=== PATIENT | male | born 1930 | race Caucasian/White ===

== ENCOUNTER 2016-05-13 20:53 | Emergency (ER) | payer MEDICARE ==
[~2016-05-13] VITALS: Ht 167.6 cm; Wt 91.0 kg
[~2016-05-13 20:53] MED LIST: ACET325T51 PO; ALFU10TA11 PO; ALLO300T2 PO; ATOR80TA77 PO; BISA10SU61 RC; CLOP75TA28 PO; FURO-129 PO; LISI2.5T PO; LIT150 PO; NITR0.4T6 SL; ONDA8TAB10 PO; POLY1GRA PO; POTA20TA7 PO; QUET100T69 PO; TAMS0.4C98 PO; TRAM50TA2 PO
[2016-05-13 21:00] VITALS: BP 123/70; PULSE 75; RESP 20; O2SAT 97
--- NOTE | 2016-05-13 23:18 | ED.REPORT ---
HPI-Extremity Problem Lower Date of Service May 13, 2016 ED Provider: Franko Zuniga MD An 85 year old male with a history of VA x5, multiple open heart surgeries with five stents, pacemaker, hypertension, chronic knee pain, and left knee surgery x7 presents to the ED complaining of left knee pain. The knee his also been intermittently cold, numb, and swollen. The pain has been worsening recently, especially since he fell two months ago. The pt lives at [facility] in [place], and reports that the staff there will not give him pain medications. The pain has reached the point that he has been unable to sleep for two days. In the ED, the pt is requesting pain medications to help him sleep. Nursing Notes Stated Complaint: LEFT SIDE FROM KNEE DOWN IS NUMB Chief Complaint: Extremity Trauma Nursing Notes Reviewed: Yes Allergies: Coded Allergies: codeine (Unverified Allergy, Unknown, 08/07/15) Scheduled Alfuzosin ER (Alfuzosin ER) 10 Mg Tab.er.24h 10 MG PO DAILY Allopurinol (Allopurinol) 300 Mg Tablet 300 MG PO QAM Atorvastatin Calcium (Atorvastatin Calcium) 80 Mg Tablet 80 MG PO HS Clopidogrel (Clopidogrel) 75 Mg Tablet 75 MG PO DAILY Furosemide (Lasix) 20 Mg Tablet 20 MG PO DAILY Lisinopril (Lisinopril) 2.5 Mg Tablet 2.5 MG PO DAILY [place] Carbonate ([place] Carbonate) 150 Mg Capsule 150 MG PO MORNING For bipolar disorder Potassium Chloride ER (Klor-Con M20) 20 Meq Tablet 20 MEQ PO QAM Quetiapine Fumarate (Quetiapine Fumarate) 100 Mg Tablet 100 MG PO HS Scheduled PRN Acetaminophen (Acetaminophen) 325 Mg Tablet 650 MG PO q6hrs PRN PRN For Pain Bisacodyl (Dulcolax Rectal) 10 Mg Supp.rect 10 MG RC DAILY PRN PRN For Constipation Ibuprofen (Ibuprofen) 600 Mg Tablet 600 MG PO TID PRN PRN For Pain Nitroglycerin SL (Nitroglycerin SL) 0.4 Mg Tab.subl 0.4 MG SL Q5MIN PRN PRN For Chest Pain Ondansetron ODT (Ondansetron ODT) 8 Mg Tab.rapdis 8 MG PO QID PRN PRN For Nausea Polyethylene Glycol 3350 (Polyethylene Glycol 3350) 1 Gm Granules 17 GM PO DAILY PRN PRN For Constipation Tamsulosin (Flomax) 0.4 Mg Capsule 0.4 MG PO DAILY PRN PRN . Tramadol (Tramadol) 50 Mg Tablet 50 MG PO TID PRN PRN For Pain General Time Seen by MD: 23:17 Chief Complaint Other (Left knee pain ) Hx Obtained From: Patient Arrived By: Walk-in Onset Occurred: More than a week ago... Symptom Duration: Since onset Recent Healthcare: No recent hospitalization, Recent doctor visit Similar Sx Previous: Yes Past Medical History Past Medical History Ischemic cardiomyopathy. Coronary artery disease with history of CABG and drug-eluting stents Chronic diastolic heart failure Hypertension Depression Bipolar disorder (h/o lithium use) Gout Cholelithiasis Dysphagia Gastric ulcer Chronic knee pain Past Surgical History History of quadruple coronary artery bypass grafting, 1972 Cardiac catheterization with drug eluding stents, 2008 Left total knee replacement Appendectomy Status post EGD 02/27/2015, normal Reports: CABG Reports: Pacemaker insertion Smoking History Unknown if Ever Smoker Social History recently relocated to [facility]. lives at the [facility] assisted [facility]. uses wheelchair to get around DNR/DNI, see palliative care consultation during hospitalization 03/11/1950 Alcohol Use: Denies alcohol use Drug Use: Denies drug use Other Social History: Good social support, Lives in [facility] Ambulatory Status Wheelchair Review of Systems Review of Systems Note: left knee feels cold Constitutional: Denies: Fever Musculoskeletal: Reports: Extremity pain, Joint pain, Joint swelling, Denies: Neck pain Skin: Denies Rash Neurologic: Reports: Numbness Complete sys rev & neg: except as marked. Physical Exam Initial Vital Signs Vital Signs (First) Date Time Temp Pulse Resp B/P Pulse Ox O2 Delivery O2 Flow Rate FiO2 05/13/16 21:00 36.3 75 20 123/70 97 Room Air Initial VS: Reviewed Lower Extremity / Pelvis / MS: Full range of motion, Non-tender, No erythema, Neurologic intact no warmth Ankle / Foot: Atraumatic, Full range of motion General/Constitutional: Awake, Alert Respiratory / Chest: Atraumatic, Breath sounds NL, Breath sounds = bilat, No respiratory distress Cardiovascular: Heart rate NL, Heart sounds NL Skin: Atraumatic, Color NL, No rash, Warm, Dry Neurologic: Oriented X3, Speech NL, No motor deficits, No sensory deficits Head / Eyes: Atraumatic, Normocephalic, PERRL, EOMI ENT: Atraumatic, Airway patent, Mucous membranes moist Neck: Atraumatic, Supple, Full range of motion Abdomen: Atraumatic, Soft, Non-tender Back: Atraumatic, Full range of motion Upper Extremity / MS: Atraumatic, Full range of motion Psychiatric: Affect NL, Mood NL Interpretation & Diagnostics X-Ray Interpretation Xray Interpretation: hardware present no acute changes X-Ray Ordered: Knee left Interpretation / Wet Read by: Wet read ED physician Procedures Procedure Notes: Left Knee Injection/arthrocentesis: 00:48 ED physician Informed consent provided by pt, time-out performed, hand hygiene observed, stand sterile technique Skin preparation agent: chlorhexidine 25 gauge needle 40 mg Kenalog, 4 mg lidocaine Re-Eval/Medical Decision Med Decision/Clinical Course 85-year-old male with numerous surgeries left knee complaining of chronic left knee pain. No sign symptoms infection. No fevers, nausea vomiting, redness, swelling. He reports this is his typical chronic pain. He is requesting a steroid injection. I gave him a steroid injection with Kenalog 40 mg and lidocaine 4 mg. As prescribed ibuprofen to use as needed for pain for the next couple days. Afterwards he is to use Tylenol. Return precautions given. Advised to follow up with primary doctor. Source of Hx: Old records Re-Evaluation/Progress : Time of Eval: 00:48 Patient Status: Condition improved Re-Evaluation/Progress Note: Pt rechecked, and left knee injection procedure is performed. Pt tolerated the procedure well and there were no complications. The plan for discharge is discussed. The pt understands and agrees with the plan. All questions are addressed at this time. Counseled Regarding: Diagnosis, Lab results, Need for follow-up, When/why to return to ED Discharge & Departure Impression: Primary Impression: Arthritis of left knee Disposition: Home Discharge Condition All VS Reviewed: Yes Condition: Stable Patient Instructions: Osteoarthritis (ED) Additional Instructions: Thank you for entrusting us with your care today. Take ibuprofen as directed for pain. Follow up with your primary care physician for further evaluation. Return to the emergency department if you develop any new or worsening symptoms. Referrals: [facility] Scribe Attestation Portions of this note were transcribed by Cristobal Valle. I, Dr. Zuniga personally performed the history, physical exam and medical decision-making; I reviewed and confirmed the accuracy of the information in the transcribed note. Signed by: Ekaterina Cowart, 05/14/2016 and 02:01. copies to: [facility] Franko Zuniga MD May 13, 2016 23:18 CRISTOBAL VALLE May 14, 2016 00:26
[2016-05-14] MEDS ORDERED: Lidocaine 1% 50 mL Inj NERVEBLOCK ONE (00:25)
[2016-05-14] MEDS ORDERED: Triamcinolone Acet 40 mg/mL 5 mL Inj INTRARTICU ONE (00:25)
[2016-05-14] MEDS ORDERED: diphenhydrAMINE 25 mg Capsule PO ONE (00:45)
[2016-05-14] MEDS ORDERED: IBUP-1827 PO (01:01)
[2016-05-14 01:30] VITALS: BP 124/72; PULSE 68; RESP 24; O2SAT 96
--- NOTE | 2016-05-14 08:59 | DRSVH ---
PROCEDURE: X-RAY LEFT KNEE, ONE OR TWO VIEWS ([id number]) INDICATIONS: pain TECHNIQUE: 3 views of the knee were acquired. COMPARISON: None. FINDINGS: Bones: Left knee arthroplasty is present and there is periprosthetic lucency seen involving the tibia l component along the lateral and posterior aspect of the prosthesis. Hardware otherwise is intact. No periprosthetic fracture seen. Heterotopic ossification is present. Soft tissues: Small joint effusion. No suspicious soft tissue calcifications. IMPRESSION: 1. Left knee arthroplasty with periprosthetic lucency involving the tibial component which may be rel ated to loosening or infection. Recommend clinical correlation and comparison with old radiographs i f available would be helpful. Dictated by: John Charles [facility] Interpreted: Dino Vences MD on 05/14/2016 at 8:57 Transcribed by: REMINGTON on 05/14/2016 at 8:58 Approved by: Dino Vences M.D. on 05/14/2016 at 17:45
== END 2016-05-14 01:20 | disposition home or self-care (01) ==
LOC: SED 20:53
DX: M17.12 Unilateral primary osteoarthritis, left knee (principal); W19.XXXA Unspecified fall, initial encounter; Y93.01 Activity, walking, marching and hiking; Y99.8 Other external cause status; Y92.129 Unspecified place in nursing home as the place of occurrence of the external cause; I10 Essential (primary) hypertension; I50.9 Heart failure, unspecified; I25.10 Atherosclerotic heart disease of native coronary artery without angina pectoris; I25.2 Old myocardial infarction; Z96.652 Presence of left artificial knee joint; Z95.0 Presence of cardiac pacemaker; Z95.1 Presence of aortocoronary bypass graft; Z88.5 Allergy status to narcotic agent
CPT/HCPCS: 20610; 73560; 99284; J3301

== ENCOUNTER 2016-05-21 10:07 | Emergency (ER) | payer MEDICARE ==
[~2016-05-21] VITALS: Ht 167.6 cm; Wt 95.4 kg
[~2016-05-21 10:07] MED LIST changes: +IBUP-1827 PO
[2016-05-21 10:30] VITALS: BP 126/77; PULSE 94; RESP 30; O2SAT 96
--- NOTE | 2016-05-21 10:33 | ED.REPORT ---
HPI-Chest Pain 40 and Over Date of Service May 21, 2016 ED Provider: Leroy Rick DO Pt is an 85 y/o male w/ a hx of ischemic cardiomyopathy, CAD s/p CABG and stents , CHF, HTN, gastric ulcer disease, presenting to the ED with family c/o lower sternal CP onset last night. He c/o associated nausea, vomiting, increased flatus. He states that his pain feels similar to indigestion but also similar to his previous MIs. Pt denies cough, SOB, fever, chills, abdominal pain, diarrhea. Nursing Notes Stated Complaint: CHEST PAIN/SENT FROM Chief Complaint: Chest Pain Nursing Notes Reviewed: Yes Allergies: Coded Allergies: codeine (Unverified Allergy, Unknown, 08/07/15) Scheduled Alfuzosin ER (Alfuzosin ER) 10 Mg Tab.er.24h 10 MG PO DAILY Allopurinol (Allopurinol) 300 Mg Tablet 300 MG PO QAM Atorvastatin Calcium (Atorvastatin Calcium) 80 Mg Tablet 80 MG PO HS Clopidogrel (Clopidogrel) 75 Mg Tablet 75 MG PO DAILY Furosemide (Lasix) 20 Mg Tablet 20 MG PO DAILY Lisinopril (Lisinopril) 2.5 Mg Tablet 2.5 MG PO DAILY [place] Carbonate ([place] Carbonate) 150 Mg Capsule 150 MG PO MORNING For bipolar disorder Potassium Chloride ER (Klor-Con M20) 20 Meq Tablet 20 MEQ PO QAM Quetiapine Fumarate (Quetiapine Fumarate) 100 Mg Tablet 100 MG PO HS Scheduled PRN Acetaminophen (Acetaminophen) 325 Mg Tablet 650 MG PO q6hrs PRN PRN For Pain Bisacodyl (Dulcolax Rectal) 10 Mg Supp.rect 10 MG RC DAILY PRN PRN For Constipation Ibuprofen (Ibuprofen) 600 Mg Tablet 600 MG PO TID PRN PRN For Pain Nitroglycerin SL (Nitroglycerin SL) 0.4 Mg Tab.subl 0.4 MG SL Q5MIN PRN PRN For Chest Pain Ondansetron ODT (Ondansetron ODT) 8 Mg Tab.rapdis 8 MG PO QID PRN PRN For Nausea Polyethylene Glycol 3350 (Polyethylene Glycol 3350) 1 Gm Granules 17 GM PO DAILY PRN PRN For Constipation Tamsulosin (Flomax) 0.4 Mg Capsule 0.4 MG PO DAILY PRN PRN . Tramadol (Tramadol) 50 Mg Tablet 50 MG PO TID PRN PRN For Pain General Time Seen by MD: 10:32 Chief Complaint Chest pain Hx Obtained From: Patient Arrived By: Walk-in Sudden in Onset?: No Onset Occurred: 13 - 16 hours ago Symptom Duration: Since onset Location: : Substernal Quality: Painful Radiation: : Does not radiate Migration/Movement: Reports: None Severity: Current: Moderate Severity: Maximum: Moderate Recent Healthcare: Previous diagnosis Similar Sx Previous: Yes Past Medical History Past Medical History Ischemic cardiomyopathy. Coronary artery disease with history of CABG and drug-eluting stents Chronic diastolic heart failure Hypertension Depression Bipolar disorder (h/o lithium use) Gout Cholelithiasis Dysphagia Gastric ulcer Chronic knee pain Past Surgical History History of quadruple coronary artery bypass grafting, 1972 Cardiac catheterization with drug eluding stents, 2008 Left total knee replacement Appendectomy Status post EGD 02/27/2015, normal Reports: CABG Reports: Pacemaker insertion Smoking History Unknown if Ever Smoker Social History recently relocated to [facility]. lives at the [facility]. uses wheelchair to get around DNR/DNI, see palliative care consultation during hospitalization 03/11/1950 Alcohol Use: Denies alcohol use Drug Use: Denies drug use Other Social History: Good social support, Lives in [facility] Ambulatory Status Wheelchair Review of Systems Constitutional: Denies: Chills, Fever Respiratory: Denies: Non-productive cough, Shortness of breath Cardiovascular: Reports: Chest pain GI: Reports: Belching, Nausea, Vomiting, Denies: Abdominal pain, Diarrhea Complete sys rev & neg: except as marked. Physical Exam Initial Vital Signs Vital Signs (First) Date Time Temp Pulse Resp B/P Pulse Ox O2 Delivery O2 Flow Rate FiO2 05/21/16 10:30 36. 94 30 126/77 96 Room Air 05/21/16 12:23 2 Initial VS: Reviewed, Vital signs normal Head / Eyes: Atraumatic, Normocephalic, PERRL Neck: Supple, Full range of motion Extremities: Vascular intact, Neuro intact, No swelling, No tenderness Skin: Warm, Dry, No cyanosis Neurologic: Alert, Oriented, Nonfocal Psychiatric: Mood/affect normal, Behavior normal, Normal thought content General/Constitutional: Awake, Alert, No acute distress, Cooperative, Not toxic appearing Respiratory / Chest: Atraumatic, Breath sounds NL, Breath sounds = bilat, No respiratory distress, No rales, No rhonchi, No wheezing, No retractions, No stridor, No chest wall deformity, No crepitus Lower sternal chest wall tenderness Cardiovascular: Heart rate NL, Regular rhythm, Heart sounds NL, No gallop, No murmurs, No rubs, Cap refill not delayed, Peripheral circulation NL Abdomen: Atraumatic, Soft, No guarding, No rebound, No distention, No palpable mass Tenderness/Guarding/Rebound: Positive: Tender epigastric (mild-mod) ENT: Atraumatic, Airway patent, Mucous membranes moist, Pharynx NL No evidence of oral candidiasis Interpretation & Diagnostics Lab Results Interpretation Result Diagram: 05/21/16 1035 05/21/16 1035 Test 05/21/16 10:35 05/21/16 13:09 05/21/16 14:20 White Blood Count 15.1th/mm3 (3.8-10.1) Red Blood Count 4.88mil/mm3 (4.40-5.80) Hemoglobin 14.2g/dL (13.8-17.2) Hematocrit 42.6% (41.0-50.0) Mean Corpuscular Volume 87.3fL (81-100) Mean Corpuscular Hemoglobin 29.1pg (27.0-35.0) Mean Corpuscular Hemoglobin Concent 33.3% (32.0-37.0) Red Cell Distribution Width 16.4% (12.3-15.4) Platelet Count 182bil/L (150-400) Neutrophils (%) (Auto) 86.3% (40-74) Lymphocytes (%) (Auto) 5.0% (14-46) Monocytes (%) (Auto) 8.1% (4-12) Eosinophils (%) (Auto) 0% (0-5) Basophils (%) (Auto) 0.1% (0-3) Sodium Level 136mEq/L (134-144) Potassium Level 5.0mEq/L (3.5-5.2) Chloride Level 98mEq/L (97-108) Carbon Dioxide Level 23mmol/L (18-29) Blood Urea Nitrogen 20mg/dL (8-27) Creatinine 1.28mg/dL (0.76-1.27) Estimat Glomerular Filtration Rate 57mL/min (>59) Glucose Level 111mg/dL (60-99) Calcium Level 8.5mg/dL (8.5-10.1) Magnesium Level 2.1mg/dL (1.6-2.6) Total Bilirubin 0.5mg/dL (0.0-1.2) Aspartate Amino Transf (AST/SGOT) 20U/L (0-50) Alanine Aminotransferase (ALT/SGPT) 22U/L (0-44) Alkaline Phosphatase 71U/L (25-160) Total Protein 7.5g/dL (6.4-8.4) Albumin 4.0g/dL (3.4-5.0) Hold Anguiano Top Tube Received (Received) [place] Level 0.5mEq/L (0.5-1.5) Troponin T < 0.010ug/L (0.0-0.011) Urine Color Yellow (YELLOW) Urine Appearance Clear (CLEAR,HAZY) Urine pH 7.0 (5.0-8.0) Urine Specific [place] 1.010 (1.003-1.035) Urine Protein Tracemg/dL (NEG,TRACE) Urine Glucose (UA) Negativemg/dL (NEGATIVE) Urine Ketones Negativemg/dL (NEGATIVE) Urine Occult Blood Trace (NEGATIVE) Urine Nitrite Negative (NEGATIVE) Urine Bilirubin Negative (NEGATIVE) Urine Urobilinogen Normalmg/dL (NORMAL) Urine Leukocyte Esterase Negative (NEGATIVE) Urine RBC 3-10/hpf (0-2) Urine WBC 6-10/hpf (0-5) Urine Epithelial Cells Occasional/hpf (NONE-MOD) Urine Crystals None seen (NONE SEEN) Urine Bacteria None/hpf (NONE-FEW) Urine Hyaline Casts Occasional/lpf (NONE) Urine Granular Casts Occasional (NONE SEEN) Urine Waxy Casts None seen (NONE SEEN) Urine Red Blood Cell Casts None seen (NONE SEEN) Urine White Blood Cell Casts None seen (NONE SEEN) Urine Mucus None seen (None Seen) Urine Trichomonas None seen (NONE SEEN) Urine Yeast None (NONE SEEN) Urinalysis Comment None Urine Culture Reflexed Indicated ECG Interpretation ECG Interpretation: Sinus rhythm rate 92 1st degree AV block Prolonged SC interval Old inferior infarct Time: 10:42 Interpreted by: ED physician Normal ECG Interpretation: No acute ischemic changes ECG Interpretation: Sinus rhythm rate 71 Old inferior infarct Time: 11:59 Interpreted by: ED physician Normal ECG Interpretation: No acute ischemic changes, No change from prior ECGs X-Ray Chest Interpretation Chest Xray Interpretation: IMPRESSION: Expiratory chest demonstrating left basilar airspace opacity which may be related to atelectasis aspiration or pneumonia cannot be excluded. Dictated by: John Charles [facility] Interpreted: Irene Quezada MD on 05/21/2016 at 11:54 Transcribed by: HAFSA on 05/21/2016 at 11:55 View: Portable, 1 view Interpretation / Wet Read by: Interpret - Radiologist CT Chest Interpretation IMPRESSION: 1. No acute pulmonary embolus. 2. Small right pleural effusion and basilar atelectasis versus basilar consolidation. 3. Distal esophageal wall thickening and periesophageal fat stranding suspicious for esophagitis. Please correlate clinically. Short interval followup is recommended to exclude esophageal neoplasm. Dictated by: Christel Donovan M.D. on 05/21/2016 at 12:18 Approved by: Christel Donovan M.D. on 05/21/2016 at 12:23 Study type: CT pulm angiogram Interpretation / Wet Read by: Interpret - Radiologist CT Abd / Pelvis Interpretation IMPRESSION: 1. No acute intra-abdominal findings. The appendix is not visualized; however there are no ancillary findings to suggest acute appendicitis. 2. Mild diverticulosis. No acute diverticulitis. 3. Esophageal wall thickening and periesophageal fat stranding suspicious for esophagitis. 4. Basilar consolidation versus atelectasis and small right pleural effusion. Aspiration/infection should be considered in the differential. 5. Cholelithiasis. No findings to suggest choledocholithiasis or acute cholecystitis. Dictated by: Christel Donovan M.D. on 05/21/2016 at 12:24 Approved by: Chirstel Donovan M.D. on 05/21/2016 at 12:41 Study type: Abdominal CT IV contrast Interpretation / Wet Read by: Interpret - Radiologist Re-Eval/Medical Decision Med Decision/Clinical Course Patient presents with chest pain, EKG and serial troponins are unremarkable and unchanged, it seems his symptoms are more consistent with a esophagitis picture which is evident on CAT scan. His symptoms have greatly improved. His primary care doctor was contacted who agrees with outpatient management of this. It was firm with the patient that he is taking his antibiotic for his urinary tract infection. Protonix as prescribed and he will follow-up with his primary care doctor in the next few days. Return precautions given. Time of Eval: 11:07 Re-Evaluation/Progress Note: The patient continues to have CP, no relief with nitro. Time of Eval: 13:20 Re-Evaluation/Progress Note: Pt rechecked. He is feeling better. Will contact his PCP. Time of Eval: 14:45 Patient Status: Condition improved, Moderate relief, Pain improved Re-Evaluation/Progress Note: Pt rechecked. Informed pt of plan for treatment. Pt understands and agrees with plan for treatment. F/U and RTER warnings given. All questions addressed. Consultation : Referral / Consult Name: Yina Dinero MD Consulted With: Primary care physician Call Returned at: 14:11 Presales Consultant: Will see patient, Agrees with eval, Agrees with plan Note: Will see patient tomorrow Counseled Regarding: Diagnosis, Lab results, Need for follow-up, When/why to return to ED Discharge & Departure Primary Impression: Esophagitis Disposition: Home Discharge Condition All VS Reviewed: Yes Condition: Stable Additional Instructions: Overall your symptoms do not seem to be a heart attack however you do have esophagitis. This will be treated with Protonix. Also use [id number] liquid antacid to help with your symptoms. Call your primary care doctor who agrees to see you in the next few days. Return earlier if you up severe persistent pain or other concerns. Referrals: NOPCP (PCP) Ekaterina Attestation Portions of this note were transcribed by Juve Velazquez. I, Dr. Rick personally performed the history, physical exam and medical decision-making; I reviewed and confirmed the accuracy of the information in the transcribed note. Signed by Ekaterina Dacosta, 05/21/16 - 1100 Leroy Rick DO May 21, 2016 10:33 JUVE VELAZQUEZ May 21, 2016 10:38
[2016-05-21] MEDS ORDERED: Ondansetron 2 mg/mL 2 mL Inj IVPUSH ONE (10:40)
[2016-05-21] MEDS ORDERED: LidocaineVisc 2%:Antacid 1:1 10 mL Syringe PO ONE (10:40)
[2016-05-21 10:51] LABS: BASOPHILS % (AUTO) 0.1 % (0-3); EOSINOPHILS % (AUTO) 0 % (0-5); MONOCYTES % (AUTO) 8.1 % (4-12); Mean Corpuscular Hemoglobin 29.1 pg (27.0-35.0); Mean Corpuscular Volume 87.3 fL (81-100); NEUTROPHILS % (AUTO) 86.3 % (40-74); Platelet Count 182 bil/L (150-400)
[2016-05-21 11:23] LABS: TROPONIN T 0.01 ug/L (0.0-0.011)
[2016-05-21 11:34] LABS: Magnesium 2.1 mg/dL (1.6-2.6)
--- NOTE | 2016-05-21 11:56 | DRSVH ---
PROCEDURE: X-RAY CHEST ONE VIEW, PORTABLE ([id number]) INDICATIONS: cp TECHNIQUE: One view of the chest was acquired. COMPARISON: [facility], CR, XR CHEST 1VW (PORTABLE), 08/09/2015, 20:23. FINDINGS: Surgical changes and devices: Post median sternotomy. Stable positioning dual-chamber lead cardiac p acer. Lungs and pleura: No pleural effusions or pneumothorax. Left basilar airspace opacity. Mediastinum: Mediastinal contours appear normal. Heart size is normal. Bones and chest wall: No suspicious bony lesions. Overlying soft tissues appear unremarkable. IMPRESSION: Expiratory chest demonstrating left basilar airspace opacity which may be related to atel ectasis aspiration or pneumonia cannot be excluded. Dictated by: John Charles [facility] Interpreted: Irene Quezada MD on 05/21/2016 at 11:54 Transcribed by: HAFSA on 05/21/2016 at 11:55 Approved by: Irene Quezada MD, PhD on 05/21/2016 at 17:15
[2016-05-21 12:23] VITALS: BP 104/49; PULSE 72; RESP 20; O2SAT 95
--- NOTE | 2016-05-21 12:25 | DRSVH ---
PROCEDURE: CT ANGIO CHEST PULMONARY EMBOLISM ([id number]) INDICATIONS: chest pain TECHNIQUE: After the administration of intravenous contrast, 2 mm thick sections acquired from the pulmonary api abner to the posterior costophrenic angles. 3-dimensional maximum intensity projection (MIP) coronal a nd sagittal reformats were then acquired through the thorax. For radiation dose reduction, the follo wing was used: automated exposure control, adjustment of mA and/or kV according to patient size. COMPARISON: [facility], CT, CT ANGIO CHEST PE, 01/01/2015, 8:58. FINDINGS: Image quality: Excellent. Pulmonary arteries: Pulmonary arteries are normal in size, and demonstrate no intraluminal filling d efects to suggest central pulmonary embolism. Lungs and pleura: There is a small right low density pleural effusion. Compressive atelectasis or mil d consolidation is present in the dependent lung bases bilaterally. Mediastinum: Heart size is mildly enlarged, without pericardial effusion. No mediastinal or hilar a denopathy. Thoracic aorta is normal in caliber and enhancement. Mild atheromatous calcifications are present at the aortic arch. The upper and mid esophagus demonstrate normal course and caliber. There is circumferential wall thickening of the distal esophagus with periesophageal fat stranding. Bones and chest wall: Patient is status post median sternotomy. No suspicious bony lesions. Ribs and thoracic spine appear intact throughout. Thyroid gland is unremarkable. No axillary or supraclavic ular adenopathy. Abdomen: There is a low density left-sided adrenal mass consistent with an adrenal adenoma. Visualize d upper abdominal solid organs appear otherwise normal in the early arterial phase of enhancement. IMPRESSION: 1. No acute pulmonary embolus. 2. Small right pleural effusion and basilar atelectasis versus basilar consolidation. 3. Distal esophageal wall thickening and periesophageal fat stranding suspicious for esophagitis. Ple ase correlate clinically. Short interval followup is recommended to exclude esophageal neoplasm. Dictated by: Christel Donovan M.D. on 05/21/2016 at 12:18 Approved by: Christel Donovan M.D. on 05/21/2016 at 12:23
--- NOTE | 2016-05-21 12:42 | DRSVH ---
PROCEDURE: CT ABDOMEN AND PELVIS WITH CONTRAST ([id number]) INDICATIONS: upper abd pain, vomiting, leukocytosis TECHNIQUE: After the administration of intravenous contrast, 5 mm thick sections acquired from the diaphragm to the symphysis. 5 mm coronal and sagittal reformats were acquired. For radiation dose reduction, the following was used: automated exposure control, adjustment of mA and/or kV according to patient renuka villalobos. COMPARISON: [facility], CT, CT ABD PELVIS W CON, 08/13/2015, 0:13. FINDINGS: Image quality: Excellent. ABDOMEN: Lung bases: There is a small right pleural effusion and bilateral basilar atelectasis versus mild con solidation. There is circumferential esophageal wall thickening of the distal esophagus with mild per iesophageal fat stranding. Solid organs: Liver and spleen are normal in size and enhancement. Ultiple subcentimeter calcified g allstones are present within the gallbladder fundus. No gallbladder wall thickening or pericholecysti c fluid. Biliary system is non dilated. Pancreas enhances normally. No right-sided adrenal nodules. There is a left adrenal nodule which demonstrated fat density on the arterial phase pulmonary CT fro m the same date suggesting an adrenal adenoma. Kidneys demonstrate normal size and enhancement, with out hydronephrosis. There is trace free fluid around the lower pole the left kidney unchanged from t he study dated 08/13/15. No striated nephrograms or findings to suggest pyelonephritis. Peritoneum and bowel: Bowel loops demonstrate normal wall thickness and caliber. The appendix is not visualized; however surgical clips are present in the region of the cecum in the lower quadrant sugg esting prior appendectomy. There are scattered sigmoid diverticula. No evidence for diverticulitis. N o free fluid or air. Nodes and vessels: No retroperitoneal or mesenteric adenopathy by size criteria. Aorta and inferior vena cava are normal in size. There are scattered atheromatous calcifications throughout the aorta a nd iliac arteries bilaterally. Miscellaneous: No ventral hernias. PELVIS: Genitourinary: Bladder wall thickness is normal. The prostate is mildly enlarged and has a heteroge neous appearance. Miscellaneous: No inguinal hernias adenopathy. There our small bilateral fat containing inguinal her nias. A surgical clip is present in the right inguinal region. Bones: No suspicious bony lesions. No vertebral body compression fractures. Severe degenerative ch anges are present throughout the thoracolumbar spine. IMPRESSION: 1. No acute intra-abdominal findings. The appendix is not visualized; however there are no ancillary findings to suggest acute appendicitis. 2. Mild diverticulosis. No acute diverticulitis. 3. Esophageal wall thickening and periesophageal fat stranding suspicious for esophagitis. 4. Basilar consolidation versus atelectasis and small right pleural effusion. Aspiration/infection sh ould be considered in the differential. 5. Cholelithiasis. No findings to suggest choledocholithiasis or acute cholecystitis. Dictated by: Christel Donovan M.D. on 05/21/2016 at 12:24 Approved by: Christel Donovan M.D. on 05/21/2016 at 12:41
[2016-05-21] MEDS ORDERED: Pantoprazole 4 mg/mL 10 mL Inj IVPUSH ONE (12:45)
[2016-05-21 14:49] LABS: APPEARANCE,URINE CLEAR (CLEAR,HAZY); COLOR,URINE YELLOW (YELLOW); OCCULT BLOOD,URINE TRACE (NEGATIVE); UROBILINOGEN,URINE NORMAL (NORMAL)
[2016-05-21 15:51] VITALS: BP 107/51; PULSE 72; RESP 20; O2SAT 98
== END 2016-05-21 15:52 | disposition home or self-care (01) ==
LOC: SED 10:07
DX: K20.9 Esophagitis, unspecified (principal); I11.0 Hypertensive heart disease with heart failure; I50.32 Chronic diastolic (congestive) heart failure; I25.10 Atherosclerotic heart disease of native coronary artery without angina pectoris; I25.5 Ischemic cardiomyopathy; F31.9 Bipolar disorder, unspecified; Z95.0 Presence of cardiac pacemaker; Z95.1 Presence of aortocoronary bypass graft; Z95.5 Presence of coronary angioplasty implant and graft; Z88.5 Allergy status to narcotic agent
CPT/HCPCS: 36415; 71010; 71275; 74177; 80053; 80178; 81000; 83735; 84484; 85025; 87086; 87088; 93005; 96361; 96374; 96375; 99285; J2270; J2405; Q9967

== ENCOUNTER 2016-05-29 08:27 | Emergency (ER) | payer MEDICARE ==
[~2016-05-29] VITALS: Ht 167.6 cm; Wt 92.7 kg
[2016-05-29 08:28] VITALS: BP 153/46; PULSE 70; RESP 25; O2SAT 93
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
[2016-05-29] MEDS ORDERED: QUET200T58 PO (09:03)
[2016-05-29] MEDS ORDERED: FLUO20CA25 PO (09:03)
[2016-05-29] MEDS ORDERED: PHEN180L2 PO (09:03)
[2016-05-29] MEDS ORDERED: OMEP20CA11 PO (09:03)
--- NOTE | 2016-05-29 09:24 | DRSVH ---
PROCEDURE: CT BRAIN WITHOUT CONTRAST ([id number]) INDICATIONS: trauma TECHNIQUE: Noncontrast 4.5 mm thick angled axial sections acquired from the foramen magnum to the vertex, with c oronal reformats. COMPARISON: [facility], CR, XR CHEST 1VW, 12/31/2014, 18:43. FINDINGS: Image quality: Excellent. CSF spaces: Basal cisterns are patent. No extra-axial fluid collections. The ventricles are symmet gloria in size and shape. Brain: No intracranial bleeds or masses. There is cerebral volume loss for age, with resultant vent ricular and sulcal prominence. There are periventricular and deep white matter chronic small vessel ischemic changes. There is intracranial internal carotid artery and vertebral artery atherosclerosis . Skull and face: Calvarium and visualized facial bones appear intact, without suspicious lesions. Sinuses: Mild mucosal thickening noted in the right maxillary sinus. Small right maxillary sinus mucu s retention cysts versus polyps. The mastoids are clear. IMPRESSION: No acute intracranial disease process. Dictated by: Irene Quezada MD, PhD on 05/29/2016 at 9:21 Approved by: Irene Quezada MD, PhD on 05/29/2016 at 9:23
--- NOTE | 2016-05-29 09:39 | DRSVH ---
PROCEDURE: CT CERVICAL SPINE WITHOUT CONTRAST ([id number]) INDICATIONS: trauma TECHNIQUE: Noncontrast 3 mm thick sections acquired from the skull base to the T4 level. Sagittal and coronal r eformats were then constructed. For radiation dose reduction, the following was used: automated exp osure control, adjustment of mA and/or kV according to patient size. COMPARISON: None. FINDINGS: Image quality: Excellent. Bones: No fractures or dislocations. Visualized superior ribs are intact. Spine degenerative disc d isease and facet arthropathy are noted. Soft tissues: Prevertebral soft tissues are normal in thickness. No paravertebral hematomas. No ap ical pneumothoraces. Surgical clips noted in the mediastinum. Presence of cardiac pacer leads noted. Atherosclerotic calcifications noted in the carotid arteries and vertebral arteries. IMPRESSION: No fracture. No acute osseous lesion. If symptoms and/or clinical suspicion for patholog y persists, evaluation with MRI may be helpful for further assessment. Dictated by: Irene Quezada MD, PhD on 05/29/2016 at 9:31 Approved by: Irene Quezada MD, PhD on 05/29/2016 at 9:38
--- NOTE | 2016-05-29 10:12 | DRSVH ---
PROCEDURE: X-RAY RIGHT ANKLE, MINIMUM THREE VIEWS ([id number]) INDICATIONS: RIGHT ANKLE PAIN TECHNIQUE: 3 views of the ankle were acquired. COMPARISON: None. FINDINGS: Bones: No fractures or dislocations. Ankle mortise is normally aligned. No suspicious bony lesions . Mild tibiotalar Mr. joint degeneration. Calcaneal spurring. Soft tissues: No tibiotalar joint effusion. Achilles tendon appears normal. Plantar aponeurosis ca lcification. Multiple surgical clips. IMPRESSION: No displaced fracture seen. If there is continued pain, followup exam or additional marcela ging such as MRI or CT could be performed for further assessment. Dictated by: John Charles RRA Interpreted: Irene Quezada MD on 05/29/2016 at 10:11 Transcribed by: HAFSA on 05/29/2016 at 10:12 Approved by: Irene Quezada MD, PhD on 05/29/2016 at 17:02
--- NOTE | 2016-05-29 10:13 | DRSVH ---
PROCEDURE: X-RAY PELVIS W/LAT HIP (LT) ([id number]) INDICATIONS: dyspnea TECHNIQUE: AP pelvis with lateral view(s) of the left hip(s). COMPARISON: None. FINDINGS: Bones: No fractures or dislocations. Pelvic ring appears intact. No suspicious bony lesions. Mild joint narrowing with periarticular osteophyte formation of the hip joints bilaterally. Degenerative change within the lower lumbar spine. Soft tissues: The visualized bowel gas pattern is normal. No suspicious soft tissue calcifications. Right inguinal canal surgical clips. IMPRESSION: No displaced fracture seen. If there is continued pain, followup exam or additional marcela ging such as MRI or CT could be performed for further assessment. Dictated by: John Charles RRA Interpreted: Irene Quezada MD on 05/29/2016 at 10:12 Transcribed by: HAFSA on 05/29/2016 at 10:13 Approved by: Irene Quezada MD, PhD on 05/29/2016 at 17:02
--- NOTE | 2016-05-29 10:14 | DRSVH ---
PROCEDURE: X-RAY CHEST ONE VIEW, PORTABLE ([id number]) INDICATIONS: LEFT HIP PAIN TECHNIQUE: One view of the chest was acquired. COMPARISON: [facility], CT, CT ANGIO CHEST PE, 05/21/2016, 11:53. FINDINGS: Surgical changes and devices: Stable positioning of left cardiac pacer and median sternotomy wires ar e present. Lungs and pleura: No pleural effusions or pneumothorax. Lungs are clear. Mediastinum: Mediastinal contours appear normal. Heart size is normal. Bones and chest wall: No suspicious bony lesions. Overlying soft tissues appear unremarkable. IMPRESSION: No acute cardiopulmonary disease. Dictated by: John Charles RRA Interpreted: Irene Quezdaa MD on 05/29/2016 at 10:13 Transcribed by: HAFSA on 05/29/2016 at 10:14 Approved by: Irene Quezada MD, PhD on 05/29/2016 at 17:02
[2016-05-29 10:20] LABS: BASOPHILS % (AUTO) 0.2 % (0-3); EOSINOPHILS % (AUTO) 2.8 % (0-5); MONOCYTES % (AUTO) 6.6 % (4-12); Mean Corpuscular Hemoglobin 28.9 pg (27.0-35.0); Mean Corpuscular Volume 88.3 fL (81-100); NEUTROPHILS % (AUTO) 73.4 % (40-74); Platelet Count 164 bil/L (150-400)
[2016-05-29 10:43] LABS: INR 0.98 ratio
[2016-05-29 11:37] VITALS: BP 136/54; PULSE 71; RESP 20; O2SAT 94
== END 2016-05-29 11:38 | disposition home or self-care (01) ==
LOC: SED 08:27
DX: S09.90XA Unspecified injury of head, initial encounter (principal); V00.141A Fall from scooter (nonmotorized), initial encounter; Y93.89 Activity, other specified; Y92.89 Other specified places as the place of occurrence of the external cause; Y99.8 Other external cause status; M25.571 Pain in right ankle and joints of right foot; R41.0 Disorientation, unspecified; I11.0 Hypertensive heart disease with heart failure; I50.32 Chronic diastolic (congestive) heart failure; I25.10 Atherosclerotic heart disease of native coronary artery without angina pectoris; I25.5 Ischemic cardiomyopathy; F31.9 Bipolar disorder, unspecified; Z95.0 Presence of cardiac pacemaker; Z95.1 Presence of aortocoronary bypass graft; Z95.5 Presence of coronary angioplasty implant and graft; Z88.5 Allergy status to narcotic agent